=== PATIENT | male | born 1985 | race Caucasian/White ===

== ENCOUNTER 2018-09-26 10:45 | Emergency (ER) | payer OTHER, SELFPAY ==
[2018-09-26] MEDS ORDERED: Sodium Chloride 0.9% 1,000 ML ONE ×2 (11:23→11:59)
[2018-09-26] MEDS ORDERED: Ondansetron PF 4 MG/2 ML Vial ONE (11:24)
[2018-09-26 11:49] LABS: #Basophils 0.2 thou/uL (0.0-0.2); #Lymphocytes 1.9 thou/uL (1.20-3.40); #Neutrophils 12.1 thou/uL (1.40-6.50); %Eosinophils 0.3 % (0.0-10.0); %Lymphocytes 12.5 % (21.0-51.0); %Monocytes 6.6 % (0.0-10.0); %Neutrophils 79.6 % (42.0-75.0); Hemoglobin 14.5 g/dL (14.0-18.0); Mean Corpuscular HGB CONC 32.5 g/dL (32.0-36.0); Mean Corpuscular Hemoglobin 29.3 pg (27.0-31.0); Mean Corpuscular Volume 90.1 fL (78.0-98.0); Mean Platelet Volume 9.4 fL (7.4-10.4); Platelet Count 181 thou/uL (130-400); RBC Distribution Width 12.1 % (11.5-14.5); Red Blood Cell (RBC) Count 4.95 mill/uL (4.70-6.10); White Blood Cell (WBC) Count 15.2 thou/uL (4.8-10.8)
[2018-09-26 12:03] LABS: ALT (SGPT) 18 U/L (8-55); AST (SGOT) 16 U/L (5-34); Albumin 4.2 g/dL (3.5-5.0); Alkaline Phosphatase 88 U/L (40-150); Anion Gap 15 mmol/L (10-20); BUN (Urea Nitrogen) 8 mg/dL (8.9-20.6); Bilirubin, Total 0.3 mg/dL (0.2-1.2); Calc. Creatinine Clearance 0 mL/min (70-130); Calcium 9.3 mg/dL (7.8-10.44); Carbon Dioxide 23 mmol/L (22-29); Chloride 106 mmol/L (98-107); Estimated GFR-MDRD Greater than 90; Globulin 2.4 g/dL (2.4-3.5); Glucose 287 mg/dL (70-105); Lipase 129 U/L (8-78); Potassium 4.5 mmol/L (3.5-5.1); Protein, Total 6.6 g/dL (6.0-8.3); Sodium 139 mmol/L (136-145)
[2018-09-26 12:34] LABS: Bilirubin Negative (Negative); Blood, Urine Negative (Negative); Clarity Clear (Clear); Glucose, Urine (Dipstick) Negative (Negative); Leukocyte Negative (Negative); Nitrite Negative (Negative); Protein, Urine (Dipstick) Negative (Neg-Trace); Specific Gravity, Urine 1.025 (1.005-1.030); Urobilinogen 0.2 mg/dL (0.2-1.0); pH, Urine 5.5 (5.0-9.0)
== END 2018-09-26 13:24 | disposition home or self-care (01) ==
LOC: NAV ERS 10:45
DX: E11.65 Type 2 diabetes mellitus with hyperglycemia (principal); F17.210 Nicotine dependence, cigarettes, uncomplicated
CPT/HCPCS: 36416; 80053; 81003; 82010; 83690; 85025; 96361; 96374; J2405; J7050